=== PATIENT | male | born 1970 | race Caucasian/White ===

== ENCOUNTER → 2017-05-21 | Outpatient (CLI) | payer MEDICARE ==
[~2017-05-21] MED LIST: ACETAMINOPHEN-H1 TA1 PO; ATARAX,VISTARIL50 MG PO; CARBIDOPA/LEVOD1 TA1 PO; CELEXA20 MG PO; COMPAZINE10 M1 PO; CUBICIN500 MG IV; HALCION0.25 MG PO; ONE-TABLET-DAI1 EACH PO; OXYCODONE HCL10 M1 PO; PERCOCET 325 MG1 TA7 PO; PRILOSEC20 M1 PO; RIFADIN300 MG PO; VITAMIN D-32000 UNIT PO; XANAX0.5 MG PO; XARELTO10 MG PO; ZOFRAN 4 MG ED2 TAB PO
== END | disposition home or self-care (01) ==
LOC: MRI 14:00
DX: M47.892 Other spondylosis, cervical region (principal)

== ENCOUNTER → 2017-05-28 | Outpatient (CLI) | payer MEDICARE | END | disposition home or self-care (01) | LOC: MRI 13:00 | DX: M54.5 Low back pain (principal); M47.896 Other spondylosis, lumbar region; Z87.828 Personal history of other (healed) physical injury and trauma ==

== ENCOUNTER → 2017-12-01 | Outpatient (CLI) | payer MEDICARE ==
[2017-12-01 12:49] LABS: BASO % 0.3 % (0.0-1.0); EOS # 0.1 10*3/uL (0.0-0.4); EOS % 2.3 % (1.0-4.0); HEMATOCRIT 43.1 % (42.0-52.0); HEMOGLOBIN 14.1 g/dl (14.0-18.0); LYMPH # 2.6 10*3/uL (1.3-4.4); LYMPH % 41.5 % (27.0-41.0); MEAN CELL VOLUME 88.7 fl (80.0-94.0); MEAN CORPUSCULAR HGB CONC 32.7 g/dl (33.0-37.0); MEAN PLATELET VOLUME 9.2 fl (9.6-12.3); MONO # 0.6 10*3/uL (0.1-1.0); MONO % 8.9 % (3.0-9.0); NEUT # 2.9 10*3/uL (2.3-7.9); NEUT % 46.5 % (47.0-73.0); PLATELET COUNT AUTOMATED 318 10*3/uL (130-400); RED BLOOD COUNT 4.86 10*6/uL (4.50-5.90); RED CELL DISTRI WIDTH 13.2 % (0-14.5); WHITE BLOOD COUNT 6.2 10*3/uL (4.8-10.8)
[2017-12-01 13:13] LABS: BUN 17 mg/dl (7-24); CHLORIDE 106 mmol/L (98-107); CREATININE 1.03 mg/dL (0.70-1.30); POTASSIUM 4.7 mmol/L (3.5-5.1); SODIUM 141 mmol/L (136-145)
== END | disposition home or self-care (01) ==
LOC: LAB 12:06 → MRI 13:00
PROVIDERS: Internal Medicine
DX: M25.512 Pain in left shoulder (principal); M25.511 Pain in right shoulder; M25.572 Pain in left ankle and joints of left foot; M25.571 Pain in right ankle and joints of right foot; M25.559 Pain in unspecified hip; M00.9 Pyogenic arthritis, unspecified; R10.31 Right lower quadrant pain; M75.81 Other shoulder lesions, right shoulder; M25.472 Effusion, left ankle; M25.471 Effusion, right ankle

== ENCOUNTER → 2018-05-30 | Outpatient (CLI) | payer MEDICARE | END | disposition home or self-care (01) | LOC: CT 08:00 | DX: M47.897 Other spondylosis, lumbosacral region (principal); M51.37 Other intervertebral disc degeneration, lumbosacral region; M25.551 Pain in right hip ==

== ENCOUNTER → 2019-08-31 | Outpatient (CLI) | payer OTHER ==
[2019-08-31 10:33] LABS: BASO % 0.3 % (0.0-1.0); EOS # 0.1 10*3/uL (0.0-0.4); EOS % 2.4 % (1.0-4.0); HEMATOCRIT 44.5 % (42.0-52.0); HEMOGLOBIN 14.2 g/dl (14.0-18.0); LYMPH # 2.1 10*3/uL (1.3-4.4); MEAN CELL VOLUME 89.2 fl (80.0-94.0); MEAN CORPUSCULAR HGB 28.5 pg (27.0-31.0); MEAN CORPUSCULAR HGB CONC 31.9 g/dl (33.0-37.0); MEAN PLATELET VOLUME 8.8 fl (9.6-12.3); MONO # 0.5 10*3/uL (0.1-1.0); MONO % 8.5 % (3.0-9.0); NEUT # 3.1 10*3/uL (2.3-7.9); NEUT % 52.6 % (47.0-73.0); PLATELET COUNT AUTOMATED 276 10*3/uL (130-400); RED BLOOD COUNT 4.99 10*6/uL (4.50-5.90); WHITE BLOOD COUNT 5.9 10*3/uL (4.8-10.8)
[2019-08-31 11:23] LABS: ALBUMIN 3.8 gm/dl (3.1-4.5); ALKALINE PHOSPHATASE 41 U/L (45-117); BUN 20 mg/dl (7-24); CHLORIDE 107 mmol/L (98-107); CHOLESTEROL 191 mg/dL (<200); CREATININE 1.16 mg/dL (0.70-1.30); FREE T4 0.97 ng/dl (0.76-1.46); HDL CHOLESTEROL 27 mg/dl (40-60); LDL CHOLESTEROL 126 mg/dL (9-159); POTASSIUM 4.4 mmol/L (3.5-5.1); SGOT/AST 10 IU/L (3-35); SGPT/ALT 31 U/L (12-78); SODIUM 140 mmol/L (136-145); TOTAL PROTEIN 7.7 gm/dL (6.4-8.2); TRIGLYCERIDES 191 mg/dl (<150); URIC ACID 8.8 mg/dL (3.5-7.2); VLDL CHOLESTEROL 38 mg/dL (6-40)
[2019-08-31 11:31] LABS: VITAMIN D, 25-HYDROXY 20.9 ng/mL (30-100)
== END | disposition home or self-care (01) ==
LOC: LAB 08-30 10:15
PROVIDERS: Internal Medicine
DX: Z12.5 Encounter for screening for malignant neoplasm of prostate (principal); Z13.1 Encounter for screening for diabetes mellitus; E78.2 Mixed hyperlipidemia; I10 Essential (primary) hypertension; E55.9 Vitamin D deficiency, unspecified; E79.0 Hyperuricemia without signs of inflammatory arthritis and tophaceous disease

== ENCOUNTER 2019-10-06 09:04 | Inpatient (IN) | payer OTHER ==
[~2019-10-06] VITALS: Ht 190.5 cm; Wt 116.7 kg
[2019-10-06] VITALS (7 sets, daily range): BP systolic 82–127; BP diastolic 54–80
[2019-10-06 09:28] LABS: BASO % 0.4 % (0.0-1.0); EOS # 0.1 10*3/uL (0.0-0.4); EOS % 1.3 % (1.0-4.0); HEMATOCRIT 41.4 % (42.0-52.0); HEMOGLOBIN 13.1 g/dl (14.0-18.0); LYMPH # 4.1 10*3/uL (1.3-4.4); MEAN CORPUSCULAR HGB 29.4 pg (27.0-31.0); MEAN CORPUSCULAR HGB CONC 31.6 g/dl (33.0-37.0); MEAN PLATELET VOLUME 9.3 fl (9.6-12.3); MONO # 0.6 10*3/uL (0.1-1.0); MONO % 7.2 % (3.0-9.0); NEUT # 3.3 10*3/uL (2.3-7.9); NEUT % 39.7 % (47.0-73.0); PLATELET COUNT AUTOMATED 242 10*3/uL (130-400); RED BLOOD COUNT 4.45 10*6/uL (4.50-5.90); RED CELL DISTRI WIDTH 13.5 % (0-14.5); WHITE BLOOD COUNT 8.3 10*3/uL (4.8-10.8)
[2019-10-06 09:39] LABS: ACT PARTIAL THROMBO TIME 24.9 SECONDS (20.0-32.1); INTERNATIONAL NORM RATIO 0.9 (2.0-3.5)
[2019-10-06 09:45] LABS: ALBUMIN 3.6 gm/dl (3.1-4.5); ALKALINE PHOSPHATASE 39 U/L (45-117); BUN 15 mg/dl (7-24); CHLORIDE 100 mmol/L (98-107); CREATININE 1.65 mg/dL (0.70-1.30); LIPASE 250 U/L (73-393); POTASSIUM 3.8 mmol/L (3.5-5.1); SGOT/AST 31 IU/L (3-35); SGPT/ALT 40 U/L (12-78); SODIUM 136 mmol/L (136-145); TOTAL PROTEIN 7.2 gm/dL (6.4-8.2)
[2019-10-06 09:46] LABS: ACETAMINOPHEN (TYLENOL) < 5.0 ug/ml (10-30); ETHYL ALCOHOL < 3.0 mg/dl (<3); TROPONIN I < 0.015 ng/ml (<0.045)
[2019-10-06 10:20] LABS: URINE AMPHETAMINES > 1000 (1000ng/ml); URINE BARBITURATES < 200 (200ng/ml); URINE BENZODIAZEPINES > 200 (200ng/ml); URINE CANNABINOIDS (THC) < 50 (50ng/ml); URINE COCAINE < 300 (300ng/ml); URINE METHADONE < 300 (300ng/ml); URINE OPIATES < 300 (300ng/ml)
[2019-10-06 10:28] LABS: URINE PHENCYCLIDINE < 25 (25ng/ml)
[2019-10-06 10:29] LABS: BACTERIA 2+; BILIRUBIN NEGATIVE (NEGATIVE); BLOOD 3+ (NEGATIVE); CLARITY SL CLOUDY (CLEAR); COLOR YELLOW (YELLOW); GLUCOSE 3+ (NEGATIVE); KETONE NEGATIVE (NEGATIVE); LEUKO ESTERASE NEGATIVE (NEGATIVE); MUCOUS 1+; NITRITE NEGATIVE (NEGATIVE); RBC 16-20 rbc/hpf (0-2); SPECIFIC GRAVITY 1.025 (1.005-1.030); UROBILINOGEN 0.2 E.U./dl (0.2-1.0)
[2019-10-06] MEDS ORDERED: PERCOCET 7.5-31 EACH PO (10:38)
[2019-10-06] MEDS ORDERED: BUSPIRONE HCL7.5 MG PO (10:40)
[2019-10-06] MEDS ORDERED: CLONIDINE0.2 MG PO (10:40)
[2019-10-06] MEDS ORDERED: LAMICTAL25 MG PO (10:42)
[2019-10-06] MEDS ORDERED: PROZAC20 MG PO (10:42)
--- NOTE | 2019-10-06 10:43 | NUR ---
MED REC UPDATED PER MED CLAIM HISTORY - ANYTHING NOT FILLED WITHIN LAST 60 DAYS REMOVED..DR RITCHIE STOPPED IN AND WAS GOING TO SEE IF HE COULD SEE HIM IN ER PRIOR TO COMING TO THE FLOOR
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
--- NOTE | 2019-10-06 11:15 | NUR ---
PATIENT TAKEN TO ICCU AT THIS TIME. NO CHANGE IN STATUS.
[2019-10-06] MEDS ORDERED: GOOD SENSE ASP325 MG PO (12:04)
[2019-10-06] MEDS ORDERED: TYLENOL325 M1 PO (12:05)
--- NOTE | 2019-10-06 12:44 | NUR ---
ZOFRAN FOR EMESIS GREEN LIQUID AFTER LIQUID BROWN BM...
--- NOTE | 2019-10-06 13:40 | NUR ---
PALLIATIVE CARE HERE AND TALKING TO THE PATIENT - SPOKE WITH THE DAUGHTER VIA THE PHONE AND SHE IS UNABLE TO COME IN TODAY..WILL TRY TO MAKE ARRANGEMENTS FOR A MEETING TOMORROW WITH ANOTHER PALLIATIVE STAFF MEMBER.
--- NOTE | 2019-10-06 13:42 | NUR ---
SLEEPING AFTER ZOFRAN GIVEN. REMAINS AT BEDSIDE
--- NOTE | 2019-10-06 15:15 | NUR ---
SLEEPING - RESP EASY AND NONLABORED. NSR RATE 88 ON MONITOR
--- NOTE | 2019-10-06 20:16 | NUR ---
PATIENT DOZING ONCE NURSE LEAVES THE ROOM. LEFT PATIENT IS SLEEPING.
--- NOTE | 2019-10-06 22:16 | NUR ---
Shift chart check completed.24 HR chart check completed.
--- NOTE | 2019-10-06 23:57 | NUR ---
ON ASSESSMENT PATIENT AWAKE, C/O DISCOMFORT ALL OVER, BUT MOSTLY IN HIS HANDS. HE EXPRESSES THAT HE KNOWS HE CAN'T HAVE ANYTHING ELSE, AND THAT HE HAD 1000MG OF TYLENOL EARLIER. PT REQUESTED A SNACK, PROVIDED WITH CRACKERS/PB AND ANNIE RA[employer]L. CALL LIGHT IN REACH, URINAL IN REACH.
[2019-10-07] VITALS: BP 114/69
--- NOTE | 2019-10-07 02:33 | NUR ---
AWAKE REQUESTING SNACK. SAYS "I CAN'T GET BACK TO SLEEP." PROVIDED WITH PB/CRACKERS AND [employer]IE RA[employer]L.
--- NOTE | 2019-10-07 04:20 | NUR ---
SLEEPING SOUNDLY AT THIS TIME. NO DYSRHYTHMIAS. NO RESPIRATORY DISTRESS.
[2019-10-07 04:45] VITALS: BP 119/78
[2019-10-07 05:23] LABS: BUN 12 mg/dl (7-24); CHLORIDE 107 mmol/L (98-107); CREATININE 1.01 mg/dL (0.70-1.30); POTASSIUM 3.8 mmol/L (3.5-5.1); SODIUM 141 mmol/L (136-145)
[2019-10-07 06:11] LABS: BASO % 0.1 % (0.0-1.0); EOS # 0.1 10*3/uL (0.0-0.4); EOS % 1.4 % (1.0-4.0); HEMATOCRIT 37.9 % (42.0-52.0); LYMPH # 2.1 10*3/uL (1.3-4.4); LYMPH % 28.9 % (27.0-41.0); MEAN CORPUSCULAR HGB 28.5 pg (27.0-31.0); MEAN CORPUSCULAR HGB CONC 31.7 g/dl (33.0-37.0); MEAN PLATELET VOLUME 9.4 fl (9.6-12.3); MONO # 0.7 10*3/uL (0.1-1.0); MONO % 9.2 % (3.0-9.0); NEUT # 4.3 10*3/uL (2.3-7.9); NEUT % 60.1 % (47.0-73.0); PLATELET COUNT AUTOMATED 229 10*3/uL (130-400); RED BLOOD COUNT 4.21 10*6/uL (4.50-5.90); RED CELL DISTRI WIDTH 13.7 % (0-14.5); WHITE BLOOD COUNT 7.2 10*3/uL (4.8-10.8)
[2019-10-07 08:00] VITALS: BP 102/75
--- NOTE | 2019-10-07 10:47 | NUR ---
DC TO HOME WITH PT AND VERBALIZED GOOD UNDERSTANDING OF HOME YOEL AND FOLLOW UP
== END 2019-10-07 10:47 | disposition home or self-care (01) | DRG 918 ==
LOC: ED 09:04 → ICCU 10:10 → EDHOLD 10:10 → ICCU 10:17
PROVIDERS: Emergency Medicine; ADMIT Internal Medicine
DX: T43.621A Poisoning by amphetamines, accidental (unintentional), initial encounter (principal); F33.1 Major depressive disorder, recurrent, moderate; E66.9 Obesity, unspecified; F41.1 Generalized anxiety disorder; Z96.641 Presence of right artificial hip joint; Z88.8 Allergy status to other drugs, medicaments and biological substances; Y92.89 Other specified places as the place of occurrence of the external cause; Z68.31 Body mass index [BMI] 31.0-31.9, adult

== ENCOUNTER → 2019-11-09 | Outpatient (CLI) | payer OTHER ==
[~2019-11-09] MED LIST changes: +BUSPIRONE HCL7.5 MG PO; +CLONIDINE0.2 MG PO; +GOOD SENSE ASP325 MG PO; +LAMICTAL25 MG PO; +PERCOCET 7.5-31 EACH PO; +PROZAC20 MG PO; +TYLENOL325 M1 PO
== END | disposition home or self-care (01) ==
LOC: RAD 12:52
DX: S13.4XXA Sprain of ligaments of cervical spine, initial encounter (principal); X58.XXXA Exposure to other specified factors, initial encounter; Y93.89 Activity, other specified; Y92.89 Other specified places as the place of occurrence of the external cause; Y99.8 Other external cause status